=== PATIENT | female | born 1965 | race Caucasian/White ===

== ENCOUNTER 2018-04-18 07:10 | Day surgery (SDC) | payer OTHER ==
[~2018-04-18] VITALS: Ht 157.5 cm; Wt 64.0 kg
[2018-04-18 08:18] VITALS: Ht 157.5 cm; Wt 64.0 kg
[2018-04-18] MEDS ORDERED: SLEEP MEDS (08:31)
[2018-04-18 08:44] VITALS: BP 110/53; PULSE 74; RESP 18
[2018-04-18] MEDS ORDERED: FENTAnyl 50 MCG/ML VIAL ONE (09:26)
[2018-04-18] MEDS ORDERED: MIDAZOLAM 1 MG/ML 2 ML INJ ONE ×2 (09:26→11:26)
[2018-04-18 09:49] VITALS: BP 106/55; RESP 14
== END 2018-04-18 10:17 | disposition home or self-care (01) ==
LOC: GIL 07:10
PROVIDERS: ATTEND Internal Medicine Gastroenterology
DX: Z12.11 Encounter for screening for malignant neoplasm of colon (principal); K64.8 Other hemorrhoids; K57.30 Diverticulosis of large intestine without perforation or abscess without bleeding
CPT/HCPCS: 45378; J2250; J3010; Z7610